=== PATIENT | female | born 1985 | race Caucasian/White ===

== ENCOUNTER 2022-09-30 06:10 | Inpatient (IN) | payer OTHER ==
[2022-09-30] MEDS ORDERED: NIFEdipine 10 MG CAPSULE (FP) ONE (08:35)
[2022-09-30] MEDS ORDERED: OXYTOCIN 30 UNITS in 0.9% NS 30 UNIT/500 ML INFUS.BAG IVPB SCH (09:00)
[2022-09-30] MEDS ORDERED: OXYTOCIN 30 UNITS in 0.9% NS 30 UNIT/500 ML INFUS.BAG IVPB ONE (09:04)
[2022-09-30] MEDS ORDERED: NIFEdipine 10 MG CAPSULE (FP) PO ONE (09:15)
[2022-09-30 09:24] VITALS: BMI 23.1
[2022-09-30] MEDS ORDERED: ELECTROLYTE-148 SOLN 1,000 ML IV SCH ×2 (09:45→14:30)
[2022-09-30] MEDS ORDERED: DEXTROSE 5%-LACTATED RINGERS 1,000 ML IV SCH (09:45)
[2022-09-30 10:13] LABS: INR 0.97 (0.83-1.09); PROTHROMBIN TIME (PATIENT) 11.2 SEC (9.7-13.0)
[2022-09-30 10:16] LABS: ACTIVATED PTT 26.1 SECONDS (25.2-36.5)
[2022-09-30 10:19] LABS: BASO % 0.4 % (0-2.0); EOS % 0.3 % (0-4.5); HEMATOCRIT 32.6 % (32.4-45.2); HEMOGLOBIN 11.1 GM/dL (10.7-15.3); LYMPH % 17.6 % (8-40); MCH 29.7 pg (25.7-33.7); MCHC 34.2 g/dl (32.0-36.0); MEAN CELL VOLUME 86.8 fl (80-96); MEAN PLT VOLUME 11.3 fl (7.5-11.1); MONO % 7.8 % (3.8-10.2); NEUT % 73.9 % (42.8-82.8); PLATELET COUNT 165 10^3/uL (134-434); RBC 3.75 M/mm3 (3.60-5.2); RDW 15.8 % (11.6-15.6); WHITE BLOOD COUNT 5.7 K/mm3 (4.0-10.0)
[2022-09-30 10:28] LABS: CALCIUM 8.8 mg/dL (8.5-10.1)
[2022-09-30 10:29] LABS: BLOOD UREA NITROGEN 11.7 mg/dL (7-18)
[2022-09-30 10:32] LABS: CREATININE 0.5 mg/dL (0.55-1.3)
[2022-09-30 10:57] LABS: ALBUMIN 2.5 g/dl (3.4-5.0)
[2022-09-30 11:03] LABS: TOT PROT 6.3 g/dl (6.4-8.2)
[2022-09-30 11:04] LABS: BILIRUBIN,TOTAL 0.2 mg/dL (0.2-1)
[2022-09-30] MEDS ORDERED: FENTANYL/BUPIVACAINE/NS/PF - PCEA - 50 ML DISP.SYRIN EP ONE (14:17)
[2022-09-30] MEDS ORDERED: NALOXONE HCL 0.4 MG/ML VIAL IVPUSH PRN (14:23)
[2022-09-30] MEDS ORDERED: BUPIVACAINE HCL/PF 0.25% (2.5MG/ML) 10 ML VIAL ONE (14:25)
[2022-09-30] MEDS ORDERED: FENTANYL/BUPIVACAINE/NS/PF - PCEA - 50 ML DISP.SYRIN EP SCH (14:30)
[2022-09-30] MEDS ORDERED: OXYTOCIN 20 UNITS in 0.9% NS 20 UNIT/1,000 ML INFUS.BAG IV ONE (14:55)
[2022-09-30] MEDS ORDERED: WITCH HAZEL 50% (TUCKS) 40 PAD/JAR PAD TP PRN (15:56)
[2022-09-30] MEDS ORDERED: BENZOCAINE 20% 57 GM BOTTLE TP PRN (15:56)
[2022-09-30] MEDS ORDERED: BENZOCAINE 28 GM HEMORRHOIDAL OINTMENT TP PRN (15:56)
[2022-09-30] MEDS ORDERED: oxyCODONE HCL 5 MG TABLET PO PRN (15:56)
[2022-09-30] MEDS ORDERED: BISACODYL 10 MG SUPP.RECT RC PRN (15:56)
[2022-09-30] MEDS ORDERED: METHYLERGONOVINE MALEATE 0.2 MG/1 ML AMP IM PRN (15:56)
[2022-09-30] MEDS ORDERED: OXYTOCIN 20 UNITS in 0.9% NS 20 UNIT/1,000 ML INFUS.BAG IV SCH (16:00)
[2022-09-30] MEDS: NIFEdipine E.R. 30 MG TABLET PO SCH (18:38)
[2022-09-30] MEDS: IBUPROFEN 600 MG TABLET (FP) PO PRN (19:44)
[2022-09-30] MEDS: ACETAMINOPHEN 325 MG TABLET (FP) PO PRN (20:57)
[2022-09-30] MEDS: LABETALOL HCL 200 MG TABLET (FP) PO SCH (21:47)
[2022-10-01] MEDS: IBUPROFEN 600 MG TABLET (FP) PO PRN ×3 (02:40→20:36)
[2022-10-01 08:29] LABS: BASO % 0.3 % (0-2.0); EOS % 0.3 % (0-4.5); HEMATOCRIT 27.9 % (32.4-45.2); HEMOGLOBIN 9.8 GM/dL (10.7-15.3); LYMPH % 16.2 % (8-40); MCH 30.5 pg (25.7-33.7); MCHC 35.2 g/dl (32.0-36.0); MEAN CELL VOLUME 86.7 fl (80-96); MEAN PLT VOLUME 11.6 fl (7.5-11.1); MONO % 6.1 % (3.8-10.2); NEUT % 77.1 % (42.8-82.8); PLATELET COUNT 136 10^3/uL (134-434); RBC 3.22 M/mm3 (3.60-5.2); RDW 15.6 % (11.6-15.6); WHITE BLOOD COUNT 8.1 K/mm3 (4.0-10.0)
[2022-10-01] MEDS: PRENATAL VITAMINS W/ FOLIC ACID TABLET (FP) PO SCH (09:50)
[2022-10-01] MEDS: LABETALOL HCL 200 MG TABLET (FP) PO SCH ×2 (09:50→21:20)
[2022-10-01] MEDS: NIFEdipine E.R. 30 MG TABLET PO SCH (09:52)
[2022-10-01] MEDS ORDERED: SENNOSIDES/DOCUSATE COMBO (SENNA PLUS) TABLET (UD) PO PRN (22:00)
[2022-10-02] MEDS: IBUPROFEN 600 MG TABLET (FP) PO PRN (03:05)
[2022-10-02] MEDS: ACETAMINOPHEN 325 MG TABLET (FP) PO PRN (06:24)
[2022-10-02 06:27] VITALS: TEMP 97.9
[2022-10-02 09:31] VITALS: BP 132/88; PULSE 73; RESP 18
[2022-10-02] MEDS: LABETALOL HCL 200 MG TABLET (FP) PO SCH (09:54)
[2022-10-02] MEDS: PRENATAL VITAMINS W/ FOLIC ACID TABLET (FP) PO SCH (09:54)
== END 2022-10-02 14:40 | disposition home or self-care (01) | DRG 560 ==
LOC: JLDR 06:10 → J3W 17:43
PROVIDERS: ADMIT Obstetrics & Gynecology; ATTEND Obstetrics & Gynecology
PROC: 0W8NXZZ Division of Female Perineum, External Approach (ICD-10-PCS; principal; 2022-09-30)
PROC: 10E0XZZ Delivery of Products of Conception, External Approach (ICD-10-PCS; 2022-09-30)
DX: O13.4 Gestational [pregnancy-induced] hypertension without significant proteinuria, complicating childbirth (principal); O24.425 Gestational diabetes mellitus in childbirth, controlled by oral hypoglycemic drugs; Z3A.39 39 weeks gestation of pregnancy; Z37.0 Single live birth
CPT/HCPCS: 36415; 80048; 80053; 82570; 82962; 84156; 85025; 85610; 85730; 86780; 86850; 86900; 86901; C9803-CS; U0003; U0005